=== PATIENT | male | born 1950 | race Caucasian/White ===

== ENCOUNTER 2022-04-30 10:04 | Day surgery (SDC) | payer MEDICARE, OTHER ==
[~2022-04-30] VITALS: Ht 182.9 cm; Wt 124.1 kg
[~2022-04-30 10:04] MED LIST: ATARAX 25MG25 MG/TAB PO; BENADRYL25 M2 PO; BETIMOL 0.5% OPH5 ML OP; CLARITIN 1010 MG/TAB PO; CLARITIN EYE 5 M5 ML OP; GLUCOPHAGE500 MG/TAB PO; NITROSTAT0.4 MG/TAB SL; PRINIVIL40 MG PO; PROCARDIA XL 3030 MG PO; REFRESH TEARS 115 ML OP; TOPROL XL100 MG PO; TRAVATAN Z 2.52.5 ML OU; ZOCOR 80MG80 MG PO; ZUN SPOT1% TP; [UNRECOGNIZED DRUG - OTHER] TP
[2022-04-30 10:56] VITALS: BP 113/66; PULSE 80; TEMP 97.4
[2022-04-30] MEDS ORDERED: FERROUS SU325 MG/TAB PO (11:27)
[2022-04-30] MEDS ORDERED: FLONASEALLERGY NS (11:28)
[2022-04-30] MEDS ORDERED: XALATAN EYE DROPS OD (11:29)
[2022-04-30] MEDS ORDERED: PRINIVIL40 MG PO (11:29)
[2022-04-30] MEDS ORDERED: GLUCOPHAGE1000 MG PO (11:30)
[2022-04-30] MEDS ORDERED: FLOMAX 0.40.4 MG/CAP PO (11:31)
[2022-04-30] MEDS ORDERED: PRAVACHOL 20MG20 MG PO (11:31)
[2022-04-30] MEDS ORDERED: ZYLOPRIM 300MG300 MG PO (11:33)
[2022-04-30] MEDS ORDERED: ELIQUIS 5MG PO (11:34)
[2022-04-30] MEDS ORDERED: BENADRYL25 M2 PO (11:35)
[2022-04-30 12:00] VITALS: BP 98/59; PULSE 67; TEMP 97
[2022-04-30 12:15] VITALS: BP 100/66; PULSE 61
[2022-04-30 12:30] VITALS: BP 106/69; PULSE 58
--- NOTE | 2022-04-30 12:38 | NUR ---
1200 - PT arrives and was settled by Liliana CAMPBELL. Per report, PT did not want anything to eat or drink yet; PT denies nausea and pain. Monitors applied and VSS. Warm blakets provided. Call [facility] is within reach 1215 - VSS. PT provided crackers and ice water per request. Call alv[facility] remains within reach. 1230 - VSS. PT expressed desire to be discharged. Call remains within reach. PT states ride is downstairs.
--- NOTE | 2022-04-30 12:52 | NUR ---
1245 - IV discontinued. Catheter tip intact. Pressure bandage applied. NO redness or swelling noted. DC instructions and educational material reviewed with the PT who verbalized understanding and signed the realted paperwork. PT denied needing assistance changing into personal belonings. Call [facility] remains within reach if needed. Ride was contacted per PT request.
--- NOTE | 2022-04-30 12:54 | NUR ---
PT dismissed from endo via wheelchair to the PT entrence by Joe CAMPBELL. PT has DC packet and personal belongings in hand and was transferred into the care of his friend, who is driving private car.
== END 2022-04-30 12:55 | disposition home or self-care (01) ==
LOC: SDCO 10:04
DX: Z12.11 Encounter for screening for malignant neoplasm of colon (principal); K57.30 Diverticulosis of large intestine without perforation or abscess without bleeding; E11.9 Type 2 diabetes mellitus without complications; Z79.84 Long term (current) use of oral hypoglycemic drugs; Z79.01 Long term (current) use of anticoagulants
CPT/HCPCS: J2704; J7030